=== PATIENT | male | born 1950 | race Caucasian/White ===

== ENCOUNTER 2017-06-26 13:41 | Inpatient (IN) | payer MEDICARE ==
[~2017-06-26] VITALS: Ht 175.3 cm; Wt 67.8 kg
[2017-06-26] MEDS ORDERED: CARV3.1212 PO (16:28)
[2017-06-26] MEDS ORDERED: WARF5TAB7 PO (16:28)
[2017-06-26] MEDS ORDERED: LOVA40TA2 PO (16:28)
[2017-06-26] MEDS ORDERED: ACETAMINOPHEN 650 MG/20.3 ML UDC PO PRN (16:30)
[2017-06-26] MEDS ORDERED: ONDANSETRON 2MG/ML, 2ML IV PRN (16:30)
[2017-06-26] MEDS ORDERED: ZOLPIDEM 5MG TABLET PO PRN (16:30)
[2017-06-26 17:22] VITALS: BP 123/69
[2017-06-26 17:40] LABS: ANION GAP 6 mmol/L (5-15); CALCIUM 7.6 mg/dL (8.5-10.1); CHLORIDE 105 mmol/L (98-107); CREATININE 0.73 mg/dL (0.7-1.3)
[2017-06-26 17:41] LABS: CHOLESTEROL, TOTAL 131 mg/dL (140-239); TRIGLYCERIDES 52 mg/dL (50-200); VLDL CHOLESTEROL 10 mg/dL (0-25)
[2017-06-26 17:50] LABS: CHOL/HDL RATIO 2.1; HDL CHOL % 47 % (26-37); HDL CHOLESTEROL (DIRECT) 62 mg/dL (40-60); LDL CHOLESTEROL,CALCULATED 59 mg/dL (54-169); THYROID STIMULATING HORMONE 0.646 mIU/L (0.358-3.740)
[2017-06-26] MEDS: metroNIDAZOLE 500 MG TABLET PO SCH (20:13)
[2017-06-26] MEDS: SODIUM CHLORIDE FLUSH 10ML SYR IVF SCH (20:13)
[2017-06-26 20:14] VITALS: BP 110/67
[2017-06-26] MEDS: HYDROCORTISONE ENEMA 100 MG/60 ML PR SCH (20:14)
[2017-06-26] MEDS: METOPROLOL TARTRATE 25 MG TABLET PO SCH (20:17)
[2017-06-26] MEDS ORDERED: ENOXAPARIN 80 MG/0.8 ML SQ SCH (21:00)
[2017-06-27 04:28] VITALS: BP 117/75
[2017-06-27] MEDS: metroNIDAZOLE 500 MG TABLET PO SCH ×3 (04:31→20:38)
[2017-06-27] MEDS: ENOXAPARIN 60 MG/0.6 ML SQ SCH ×2 (08:53→20:39)
[2017-06-27] MEDS: SODIUM CHLORIDE FLUSH 10ML SYR IVF SCH ×2 (08:53→20:39)
[2017-06-27] MEDS: METOPROLOL TARTRATE 25 MG TABLET PO SCH ×2 (08:53→20:39)
[2017-06-27] MEDS: HYDROCORTISONE ENEMA 100 MG/60 ML PR SCH ×2 (08:54→20:40)
[2017-06-27] MEDS ORDERED: SODIUM CHLORIDE 0.9% 1,000 ML IV SCH (10:04)
[2017-06-27 10:29] LABS: INTERNATIONAL NORMALIZED RATIO 1.51 (0.93-1.1); PROTHROMBIN TIME 15.4 Seconds (9.6-11.5)
[2017-06-27 12:49] VITALS: BP 120/76
[2017-06-27 20:08] VITALS: BP 100/62
[2017-06-27] MEDS: LOVASTATIN 40 MG TABLET PO SCH (20:38)
[2017-06-28 02:30] VITALS: BP 104/66
[2017-06-28] MEDS: metroNIDAZOLE 500 MG TABLET PO SCH ×3 (04:28→20:44)
[2017-06-28 06:04] LABS: MEAN CORPUSCULAR HEMOGLOBIN 25.1 pg (27.5-34.5); MEAN CORPUSCULAR HGB CONC 32.2 g/dL (33.2-36.2); MEAN CORPUSCULAR VOLUME 78.2 fL (81-97); MEAN PLATELET VOLUME 8.1 fL (7.4-10.4); PLATELET COUNT 265 x10^3/uL (130-400); RED CELL DISTRIBUTION WIDTH 25.1 % (9.4-14.8)
[2017-06-28 06:08] LABS: CHLORIDE 105 mmol/L (98-107)
[2017-06-28 06:22] LABS: ALANINE AMINOTRANSFERASE 29 U/L (12-78); ALBUMIN 2.4 g/dL (3.4-5.0); ALKALINE PHOSPHATASE 29 U/L (45-117); ANION GAP 6 mmol/L (5-15); BILIRUBIN,TOTAL 0.7 mg/dL (0.2-1.0); CALCIUM 7.4 mg/dL (8.5-10.1); CREATININE 0.66 mg/dL (0.7-1.3); TOTAL PROTEIN 5.1 g/dL (6.4-8.2)
[2017-06-28 07:38] VITALS: BP 115/64
[2017-06-28] MEDS: ENOXAPARIN 60 MG/0.6 ML SQ SCH ×2 (08:00→20:44)
[2017-06-28 08:29] LABS: BASOPHILS # (AUTO) 0.01 x10^3/uL (0-0.1); BASOPHILS % (AUTO) 0 % (0-1); EOSINOPHILS % (AUTO) 0 % (1-7); LYMPHOCYTES # (AUTO) 2.03 x10^3/uL (1-3.4); LYMPHOCYTES % (AUTO) 14 % (22-44); MD MORPH REVIEW ONLY; MONOCYTES # (AUTO) 1.02 x10^3/uL (0.2-0.8); MONOCYTES % (AUTO) 7 % (2-9); NEUTROPHILS # (AUTO) 11.21 x10^3/uL (1.8-6.8); NEUTROPHILS % (AUTO) 79 % (42-75)
[2017-06-28 08:30] LABS: ANISOCYTOSIS 2+; HYPOCHROMIA 1+; MICROCYTOSIS 1+; OVALOCYTES 1+
[2017-06-28 08:31] LABS: <PLATELET ESTIMATE> ADEQUATE; <PLT MORPHOLOGY> NORMAL PLT MORPH
[2017-06-28] MEDS: SODIUM CHLORIDE FLUSH 10ML SYR IVF SCH ×2 (08:43→20:44)
[2017-06-28] MEDS: METOPROLOL TARTRATE 25 MG TABLET PO SCH ×2 (08:44→20:45)
[2017-06-28] MEDS: HYDROCORTISONE ENEMA 100 MG/60 ML PR SCH ×2 (09:45→22:58)
[2017-06-28 12:21] VITALS: BP 118/72
[2017-06-28] MEDS ORDERED: FENTANYL PF 250 MCG/5ML ONE (15:21)
[2017-06-28] MEDS ORDERED: MIDAZOLAM 1 MG/ML, 5ML ONE (15:21)
[2017-06-28] MEDS ORDERED: ADENOSINE 6 MG/2 ML ONE (15:21)
[2017-06-28] MEDS ORDERED: ISOPROTERENOL 0.2MG/ML, 5ML ONE (15:22)
[2017-06-28] MEDS ORDERED: LIDOCAINE 2%, 20ML ONE (15:22)
[2017-06-28] MEDS ORDERED: ZOLPIDEM 5MG TABLET PO PRN (17:00)
[2017-06-28] MEDS ORDERED: ACETAMINOPHEN 325 MG TABLET PO PRN (17:00)
[2017-06-28 19:01] VITALS: BP 95/59
[2017-06-28] MEDS: LOVASTATIN 40 MG TABLET PO SCH (20:44)
[2017-06-28 20:45] VITALS: BP 97/61
[2017-06-29 01:23] VITALS: BP 114/71
[2017-06-29] MEDS: metroNIDAZOLE 500 MG TABLET PO SCH ×2 (04:39→13:19)
[2017-06-29 06:22] LABS: INTERNATIONAL NORMALIZED RATIO 1.23 (0.93-1.1); PROTHROMBIN TIME 12.6 Seconds (9.6-11.5)
[2017-06-29 06:24] LABS: ANION GAP 6 mmol/L (5-15); CALCIUM 7.7 mg/dL (8.5-10.1); CHLORIDE 104 mmol/L (98-107)
[2017-06-29 06:25] LABS: CREATININE 0.74 mg/dL (0.7-1.3)
[2017-06-29 06:47] LABS: MEAN CORPUSCULAR HEMOGLOBIN 25.1 pg (27.5-34.5); MEAN CORPUSCULAR HGB CONC 31.9 g/dL (33.2-36.2); MEAN CORPUSCULAR VOLUME 78.5 fL (81-97); PLATELET COUNT 277 x10^3/uL (130-400); RED BLOOD COUNT 3.71 x10^6/uL (4.38-5.82); RED CELL DISTRIBUTION WIDTH 24.9 % (9.4-14.8)
[2017-06-29 06:55] VITALS: BP 113/75
[2017-06-29 07:37] LABS: BASOPHILS # (AUTO) 0.04 x10^3/uL (0-0.1); BASOPHILS % (AUTO) 0 % (0-1); EOSINOPHILS # (AUTO) 0.02 x10^3/uL (0-0.4); EOSINOPHILS % (AUTO) 0 % (1-7); LYMPHOCYTES # (AUTO) 1.12 x10^3/uL (1-3.4); LYMPHOCYTES % (AUTO) 8 % (22-44); MD SCAN; MONOCYTES # (AUTO) 0.93 x10^3/uL (0.2-0.8); MONOCYTES % (AUTO) 7 % (2-9); NEUTROPHILS # (AUTO) 12.28 x10^3/uL (1.8-6.8); NEUTROPHILS % (AUTO) 85 % (42-75)
[2017-06-29] MEDS: ENOXAPARIN 60 MG/0.6 ML SQ SCH (08:55)
[2017-06-29] MEDS: SODIUM CHLORIDE FLUSH 10ML SYR IVF SCH (08:55)
[2017-06-29] MEDS: METOPROLOL TARTRATE 25 MG TABLET PO SCH (08:56)
[2017-06-29] MEDS: HYDROCORTISONE ENEMA 100 MG/60 ML PR SCH (10:22)
[2017-06-29] MEDS ORDERED: [UNRECOGNIZED DRUG - CODE] PR (12:36)
[2017-06-29] MEDS ORDERED: ENOX60SY4 SQ (12:36)
[2017-06-29] MEDS ORDERED: METR500T PO (12:36)
[2017-06-29] MEDS ORDERED: PRED20TA PO (12:36)
[2017-06-29] MEDS ORDERED: WARFARIN 10 MG TABLET PO-COUM ONE (13:00)
[2017-06-29 13:07] VITALS: BP 109/74
== END 2017-06-29 15:09 | disposition home or self-care (01) | DRG 274 ==
LOC: ICU 15:39 → 5SO 06-27 12:52
PROVIDERS: ADMIT Internal Medicine Cardiovascular Disease; ATTEND Internal Medicine Cardiovascular Disease
PROC: 4A023FZ Measurement of Cardiac Rhythm, Percutaneous Approach (ICD-10-PCS; principal; 2017-06-28)
PROC: 02583ZZ Destruction of Conduction Mechanism, Percutaneous Approach (ICD-10-PCS; 2017-06-28)
PROC: 4A0234Z Measurement of Cardiac Electrical Activity, Percutaneous Approach (ICD-10-PCS; 2017-06-28)
PROC: 02K83ZZ Map Conduction Mechanism, Percutaneous Approach (ICD-10-PCS; 2017-06-28)
DX: I47.1 Supraventricular tachycardia (principal); E44.0 Moderate protein-calorie malnutrition; D68.69 Other thrombophilia; D68.9 Coagulation defect, unspecified; K51.911 Ulcerative colitis, unspecified with rectal bleeding; D64.9 Anemia, unspecified; E87.6 Hypokalemia; K57.90 Diverticulosis of intestine, part unspecified, without perforation or abscess without bleeding; E78.5 Hyperlipidemia, unspecified; Z79.899 Other long term (current) drug therapy; Z79.01 Long term (current) use of anticoagulants; Z87.891 Personal history of nicotine dependence; Z81.8 Family history of other mental and behavioral disorders; Z80.1 Family history of malignant neoplasm of trachea, bronchus and lung; Z95.2 Presence of prosthetic heart valve; Z80.42 Family history of malignant neoplasm of prostate; Z83.3 Family history of diabetes mellitus; Z82.49 Family history of ischemic heart disease and other diseases of the circulatory system
CPT/HCPCS: 36415; 80048; 80053; 80061; 83735; 84439; 84443; 85014; 85018; 85025; 85610; 87081; 93005; 93613; 93621; 93623; 93653; 99156; 99157; C1766; C1894; J0153; J1650; J2250; J3010; J3490; C1730; C2630; J7512